=== PATIENT | male | born 1955 | race Caucasian/White ===

== ENCOUNTER 2024-09-09 10:48 | Outpatient (RCR) | payer MEDICARE, OTHER, SELFPAY | END 2024-09-09 13:55 | disposition home or self-care (01) | LOC: HO.PT 10:48 | PROVIDERS: PCP Nurse Practitioner Primary Care; Visit Provider Nurse Practitioner | DX: C61 Malignant neoplasm of prostate (principal) | CPT/HCPCS: 97110; 97112; 97140; 97161; 97530 ==